=== PATIENT | male | born 1960 | race Two or more races ===

== ENCOUNTER 2018-02-23 06:03 | Emergency (ER) | payer SELFPAY ==
[~2018-02-23] VITALS: Ht 152.4 cm; Wt 86.2 kg
[2018-02-23 06:24] VITALS: BP 177/89
[2018-02-23 07:43] LABS: Basophils # (auto) 0.1 uL; Basophils % (auto) 0.8 % (0.0-2.0); Eosinophils # (auto) 0.6 uL; Eosinophils % (auto) 4.4 % (0.0-7.0); Hematocrit 42.4 % (41.0-53.0); Hemoglobin 14.5 g/dL (13.5-17.5); Lymphocytes # (auto) 3.7 uL; Lymphocytes % (auto) 25.7 % (10.0-50.0); Mean Corpuscular Hemoglobin 31.3 pg (28.0-32.0); Mean Corpuscular Hgb Conc. 34.3 g/dL (32.0-36.0); Mean Corpuscular Volume 91.2 fL (80.0-100.0); Monocytes # (auto) 1.2 uL; Neutrophils # (auto) 8.9 uL; Neutrophils % (auto) 61.1 % (37.0-80.0); Nucleated Red Blood Cells % 0.2 %; Platelet Count (auto) 354 10^3/uL (140-450); Red Blood Cells 4.65 10^6/uL (4.5-5.90); Red Cell Distribution Width 13.7 % (11.8-14.3); White Blood Cell 14.5 10^3/uL (4.4-10.8)
[2018-02-23 07:52] LABS: Alanine Aminotransferase 32 U/L (16-61); Albumin 3.3 g/dL (3.4-5.0); Alkaline Phosphatase 58 U/L (45-117); Anion Gap 9 (5-15); Aspartate Aminotransferase 22 U/L (15-37); BUN/Creatinine Ratio 17.1; Bilirubin, Total 0.3 mg/dL (0.2-1.0); Blood Urea Nitrogen 18 mg/dL (7-18); Calcium 9.2 mg/dL (8.5-10.1); Carbon Dioxide 24 mmol/L (21-32); Chloride 105 mmol/L (98-107); GFR African American 93 mL/min; GFR Non-African American 77 mL/min; Glucose 187 mg/dL (74-106); Potassium 4.4 mmol/L (3.5-5.1); Sodium 138 mmol/L (136-145); Total Protein 7.5 g/dL (6.4-8.2)
[2018-02-23] MEDS ORDERED: KETOROLAC TROMETH 60MG/2ML VIAL IM ONE (08:00)
[2018-02-23] MEDS ORDERED: HYDROcodone-ACET 5/325MG TAB PO ONE (08:00)
[2018-02-23 08:12] LABS: Urine Bacteria NONE SEEN /hpf (None Seen); Urine Blood TRACE /uL (Negative); Urine Specific Gravity 1.019 (1.001-1.035); Urine WBC 10 /hpf (0 - 3)
== END 2018-02-23 08:58 | disposition home or self-care (01) ==
LOC: ER 06:08
DX: N39.0 Urinary tract infection, site not specified (principal); M54.5 Low back pain; M79.1 Myalgia; E11.9 Type 2 diabetes mellitus without complications; I10 Essential (primary) hypertension
CPT/HCPCS: 36415; 72100; 74176; 80053; 81001; 83735; 83880; 84484; 85025; 93005; 96372; 99285; J1885

== ENCOUNTER 2019-10-21 23:50 | Inpatient (IN) | payer MEDICAID ==
[~2019-10-21] VITALS: Ht 152.4 cm; Wt 87.0 kg
[2019-10-22 01:21] LABS: Basophils # (auto) 0.1 uL; Basophils % (auto) 0.4 % (0.0-2.0); Eosinophils # (auto) 0.3 uL; Eosinophils % (auto) 1.6 % (0.0-7.0); Hematocrit 37.5 % (41.0-53.0); Hemoglobin 12.3 g/dL (13.5-17.5); Lymphocytes # (auto) 3.7 uL; Mean Corpuscular Hemoglobin 29.5 pg (28.0-32.0); Mean Corpuscular Hgb Conc. 32.8 g/dL (32.0-36.0); Monocytes # (auto) 1.6 uL; Monocytes % (auto) 9.5 % (0.0-12.0); Neutrophils # (auto) 11.3 uL; Neutrophils % (auto) 66.5 % (37.0-80.0); Nucleated Red Blood Cells % 0.1 %; Platelet Count (auto) 392 10^3/uL (140-450); Red Blood Cells 4.17 10^6/uL (4.5-5.90); Red Cell Distribution Width 16.3 % (11.8-14.3)
[2019-10-22 01:41] LABS: Albumin 2.8 g/dL (3.4-5.0); Anion Gap 6 (5-15); BUN/Creatinine Ratio 13.6; Blood Urea Nitrogen 16 mg/dL (7-18); Calcium 8.8 mg/dL (8.5-10.1); Carbon Dioxide 25 mmol/L (21-32); Chloride 108 mmol/L (98-107); GFR African American 81 mL/min; GFR Non-African American 67 mL/min; Glucose 140 mg/dL (74-106); Magnesium 1.6 mg/dL (1.6-2.6); Potassium 4.1 mmol/L (3.5-5.1); Sodium 139 mmol/L (136-145)
[2019-10-22 01:49] LABS: Alanine Aminotransferase 14 U/L (16-61); Alkaline Phosphatase 58 U/L (45-117); Aspartate Aminotransferase 11 U/L (15-37); Bilirubin, Total 0.2 mg/dL (0.2-1.0); Total Protein 7.1 g/dL (6.4-8.2)
[2019-10-22] MEDS ORDERED: SODIUM CHLORIDE 0.9% 1,000 ML IV ONE (07:27)
[2019-10-22] MEDS ORDERED: VANCOMYCIN 1GM/250ML 250 ML IV ONE (07:30)
[2019-10-22] MEDS: SODIUM CHLORIDE 0.9% 1,000 ML IV SCH ×2 (09:27→20:34)
[2019-10-22] MEDS ORDERED: PROMETHAZINE HCL 25 MG/ML 1ML IV PRN (09:30)
[2019-10-22] MEDS ORDERED: traMADol HCL 50 MG TAB PO PRN (09:30)
[2019-10-22] MEDS ORDERED: CLINDAMYCIN 900MG IV 50 ML IV ONE (09:30)
[2019-10-22] MEDS ORDERED: TEMAZEPAM 15 MG CAP PO PRN (09:30)
[2019-10-22] MEDS ORDERED: LEVOFLOXACIN 500MG 100 ML IV ONE (09:30)
[2019-10-22] MEDS ORDERED: DEXTROSE (50%) 50ML SYRG IV PRN (09:30)
[2019-10-22] MEDS ORDERED: ACETAMINOPHEN 500 MG TAB PO PRN (09:30)
--- NOTE | 2019-10-22 10:45 | NUR ---
MS admit from ER [facility] admitted to tele/MS after SBAR received. Patient oriented to Caroline Blanc RN primary RN, unit, room, bed, and unit policies regarding patient care and visiting hours.Patient is alert and oriented x4. No s/s of SOB/distress reported at this time. Patient stating some discomfort due to left testicular swelling. Will medicate per MD order. IV is asymptomatic, patent and currently running sodium chloride at 100 ml/hr. Bed is low, locked with 2x side rails up. Call light within reach. Patient weighed by bed scale and encouraged to call if they need something. All questions and concerns addressed, patient verbalized understanding.
[2019-10-22] MEDS: FAMOTIDINE 20 MG TAB PO SCH ×2 (10:59→22:21)
[2019-10-22] MEDS: ENOXAPARIN SOD 40 MG/0.4 ML SYRINGE SC SCH (10:59)
[2019-10-22] MEDS: InsuLIN REG 1unit/0.01ml Soln (100units/ml) SC SCH ×3 (11:52→22:21)
[2019-10-22] MEDS: ACCU-CHEK COMFORT CURVE STRIP VI SCH ×3 (11:52→22:22)
[2019-10-22] MEDS: LEVOFLOXACIN 500MG 100 ML IV SCH (11:57)
--- NOTE | 2019-10-22 12:15 | NUR ---
SCD's Applied to both lower extremities as per MD order.
[2019-10-22 13:00] VITALS: BP 154/85
[2019-10-22 13:16] LABS: Magnesium 1.7 mg/dL (1.6-2.6)
[2019-10-22] MEDS: CLINDAMYCIN 600MG IV 50 ML IV SCH ×2 (13:32→22:21)
[2019-10-22] MEDS: KETOROLAC TROMETH 30 MG/ML 1ML VIAL IV PRN ×2 (13:43→22:25)
--- NOTE | 2019-10-22 13:49 | NUR ---
Reconcile Medications Advised patient that we need a current list of his home medications. He stated that he would call a family member and have them bring a list. Updated patient's preferred pharmacy.
[2019-10-22 17:00] VITALS: BP 174/81
--- NOTE | 2019-10-22 18:00 | NUR ---
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 Advised patient to call family and get a current list of home medications.
--- NOTE | 2019-10-22 18:05 | NUR ---
Received call back Received new orders from Dr. Altamirano.
[2019-10-22] MEDS ORDERED: amLODIPine BESYLATE 5 MG TAB PO ONE (18:15)
--- NOTE | 2019-10-22 18:21 | NUR ---
Telemetry Patient being upgraded to Telemetry due to new medication orders received. Facesheet has been sent. Waiting for tele box
[2019-10-22] MEDS: LABETALOL HCL 5 MG/ML 4ML SYRINGE IV PRN ×2 (18:58→22:24)
[2019-10-22 21:30] VITALS: BP 173/94
[2019-10-23 05:00] VITALS: BP 151/93
[2019-10-23] MEDS: SODIUM CHLORIDE 0.9% 1,000 ML IV SCH (05:35)
[2019-10-23] MEDS: CLINDAMYCIN 600MG IV 50 ML IV SCH ×2 (05:35→14:00)
[2019-10-23] MEDS: InsuLIN REG 1unit/0.01ml Soln (100units/ml) SC SCH ×2 (06:12→15:02)
[2019-10-23] MEDS: ACCU-CHEK COMFORT CURVE STRIP VI SCH ×2 (06:12→11:30)
[2019-10-23] MEDS ORDERED: ISOS30TA4 PO (06:30)
[2019-10-23] MEDS ORDERED: GLIP5TAB12 PO (06:30)
[2019-10-23] MEDS ORDERED: CLOP75TA28 PO (06:30)
[2019-10-23] MEDS ORDERED: AMLO5TAB15 PO (06:30)
[2019-10-23] MEDS ORDERED: ASPI-404 PO (06:30)
[2019-10-23] MEDS ORDERED: LOSA25TA38 PO (06:30)
[2019-10-23] MEDS ORDERED: METF-370 PO (06:30)
--- NOTE | 2019-10-23 07:30 | NUR ---
Opening Shift Note Assumed care of patient, who is resting in bed with eyes closed. Respirations are even and unlabored. No S/S of distress/SOB or pain. Bed is low, locked with 2x side rails up. Call light is within reach. Instructed on POC and to call for assist PRN, will continue to monitor for changes Q1hr and PRN.
[2019-10-23 08:00] VITALS: BP 159/71
[2019-10-23 08:20] LABS: Basophils # (auto) 0.1 uL; Basophils % (auto) 0.5 % (0.0-2.0); Eosinophils # (auto) 0.3 uL; Hematocrit 35.9 % (41.0-53.0); Lymphocytes # (auto) 2.3 uL; Lymphocytes % (auto) 16.4 % (10.0-50.0); Mean Corpuscular Hemoglobin 29.9 pg (28.0-32.0); Mean Corpuscular Hgb Conc. 33.5 g/dL (32.0-36.0); Mean Corpuscular Volume 89.3 fL (80.0-100.0); Monocytes # (auto) 1.2 uL; Monocytes % (auto) 8.2 % (0.0-12.0); Neutrophils # (auto) 10.5 uL; Neutrophils % (auto) 72.9 % (37.0-80.0); Platelet Count (auto) 338 10^3/uL (140-450); Red Blood Cells 4.02 10^6/uL (4.5-5.90); White Blood Cell 14.3 10^3/uL (4.4-10.8)
[2019-10-23 09:00] VITALS: BP 159/71
[2019-10-23] MEDS: KETOROLAC TROMETH 30 MG/ML 1ML VIAL IV PRN (09:45)
[2019-10-23] MEDS: FAMOTIDINE 20 MG TAB PO SCH (09:46)
[2019-10-23] MEDS: ENOXAPARIN SOD 40 MG/0.4 ML SYRINGE SC SCH (09:48)
[2019-10-23] MEDS: LEVOFLOXACIN 500MG 100 ML IV SCH (09:48)
[2019-10-23] MEDS ORDERED: amLODIPine BESYLATE 5 MG TAB PO SCH (10:00)
--- NOTE | 2019-10-23 10:04 | NUR ---
AMA to smoke Patient would like to go off unit to smoke. Advised patient of the risks of smoking and that he will not be able to be monitored through the court recording monitor if he is off the unit. Patient verbalized understanding. AMA to smoke is filed in the chart.
[2019-10-23 12:36] VITALS: BP 157/75
--- NOTE | 2019-10-23 13:00 | NUR ---
Dr. Friedman rounding Patient to be discharged.
[2019-10-23 14:06] VITALS: BP 159/71
--- NOTE | 2019-10-23 15:00 | NUR ---
Discharge instructions given as ordered. Encourage to follow up with PMD as instructed. All questions and concerns addressed. Patient verbalized understanding. Medication reconciliation form completed and copy given to patient. IV removed with catheter intact, pressure dressing applied. Telemetry unit returned to ICU. 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 No distress noted at time of departure.
== END 2019-10-23 14:45 | disposition home or self-care (01) | DRG 501 ==
LOC: ER 23:53 → WEST WING 23:54 → TELE-WESTW 10-22 18:26
PROVIDERS: ADMIT Internal Medicine; ATTEND Internal Medicine
DX: N45.3 Epididymo-orchitis (principal); E44.0 Moderate protein-calorie malnutrition; E11.65 Type 2 diabetes mellitus with hyperglycemia; I11.9 Hypertensive heart disease without heart failure; E66.01 Morbid (severe) obesity due to excess calories; I25.708 Atherosclerosis of coronary artery bypass graft(s), unspecified, with other forms of angina pectoris; F17.210 Nicotine dependence, cigarettes, uncomplicated; D72.829 Elevated white blood cell count, unspecified; I25.10 Atherosclerotic heart disease of native coronary artery without angina pectoris; I25.2 Old myocardial infarction; Z82.49 Family history of ischemic heart disease and other diseases of the circulatory system; Z95.5 Presence of coronary angioplasty implant and graft; Z83.3 Family history of diabetes mellitus; Z68.37 Body mass index [BMI] 37.0-37.9, adult
CPT/HCPCS: 36415; 71045; 76870; 80053; 82962; 83036; 83690; 83735; 84484; 85025; 93005; 96365; G0378; J1815; J1885; J1956; J3490